=== PATIENT | male | born 1960 | race African-American/Black ===

== ENCOUNTER 2020-09-20 15:24 | Inpatient (IN) ==
[2020-09-20] MEDS ORDERED: SODIUM CHLORIDE 0.9% 1,000 ML IV STA (16:06)
[2020-09-20] MEDS ORDERED: VANCOMYCIN INJ 1,000 MG in SODIUM CHLORIDE 0.9% 250 ML IV STA ×2 (16:06→16:11)
[2020-09-20] MEDS ORDERED: DIPH/TET/ACEL PERT BOOSTER VACCINE 0.5 ML VIAL IM ONE (16:06)
[2020-09-20] MEDS ORDERED: PIPERACILLIN/TAZOBACTAM 3,375 MG in SODIUM CHLORIDE 0.9% 100 ML IV STA (16:08)
[2020-09-20 16:29] LABS: Basophils # 0.1 10*3/uL (0.0-0.2); Basophils % 0.3 % (0.0-0.8); Eosinophils # 0.1 10*3/uL (0.0-0.87); Eosinophils % 0.3 % (0.00-10.9); Hematocrit 36.7 VOL% (42.0-52.0); Hemoglobin 11.5 GM/DL (14.0-18.0); Immature Granulocytes % 0.9 %; Immature Granulocytes Absolute 0.14 #; Lymphocytes # 1.8 10*3/uL (1.4-4.0); Mean Corpuscular HGB Conc 31.3 GM/DL (32-36); Mean Corpuscular Volume 80.8 FL (87-102); Mean Platelet Volume 9.6 FL (9.6-12.0); Monocytes % 8.1 % (1.7-12.7); Neutrophils % 78.4 % (38.7-73.9); Platelet Count 479 T/CUMM (130-400); Red Blood Count 4.54 MC/CUMM (3.8-5.5); Red Cell Distribution Width 14.2 % (9.3-17.3)
[2020-09-20 16:40] LABS: Calcium 9.1 MG/DL (8.5-10.1); Osmolality,Calculated 259.7 MOS/KG (273-304); Potassium 4.3 MMOL/L (3.5-5.1)
[2020-09-20] MEDS ORDERED: propofoL 200 MG/20 ML VIAL IV ONE (16:54)
[2020-09-20] MEDS ORDERED: LIDOCAINE 2% 5 ML VIAL ONE (16:54)
[2020-09-20] MEDS ORDERED: ONDANSETRON 4 MG/2 ML VIAL IV STA (16:55)
[2020-09-20] MEDS ORDERED: HYDROmorphone 2 MG/1 ML VIAL IV STA (16:55)
[2020-09-20] MEDS ORDERED: GLUCAGON 1 MG VIAL IM PRN (16:57)
[2020-09-20] MEDS ORDERED: ONDANSETRON 4 MG/2 ML VIAL IV PRN ×2 (16:57→18:22)
[2020-09-20] MEDS ORDERED: DEXTROSE 50% 25 GM/50 ML VIAL IV PRN (16:57)
[2020-09-20] MEDS ORDERED: fentaNYL 100 MCG/2 ML VIAL ONE (17:12)
[2020-09-20] MEDS ORDERED: PHENYLEPHRINE 1 MG/10 ML SYRINGE IV ONE (17:34)
[2020-09-20] MEDS ORDERED: DEXAMETHASONE 4 MG/1 ML VIAL ONE (18:11)
[2020-09-20] MEDS ORDERED: ONDANSETRON 4 MG/2 ML VIAL ONE (18:11)
[2020-09-20] MEDS ORDERED: SEVOFLURANE 1 UNIT/15 MINUTE INH ONE (18:11)
[2020-09-20] MEDS ORDERED: HYDROmorphone 2 MG/1 ML VIAL IV PRN (18:22)
[2020-09-20] MEDS ORDERED: INFLUENZA VIRUS VACCINE 0.5 ML SYRINGE IM ONE (20:09)
[2020-09-20] MEDS: SODIUM CHLORIDE 0.9% 1,000 ML IV SCH (20:35)
[2020-09-20] MEDS: PIPERACILLIN/TAZOBACTAM 3,375 MG in SODIUM CHLORIDE 0.9% 100 ML IV SCH (21:22)
[2020-09-21] MEDS: MORPHINE 4 MG/1 ML VIAL IV PRN ×3 (03:25→13:06)
[2020-09-21] MEDS: PIPERACILLIN/TAZOBACTAM 3,375 MG in SODIUM CHLORIDE 0.9% 100 ML IV SCH ×3 (03:38→19:12)
[2020-09-21 04:49] LABS: Basophils % 0.1 % (0.0-0.8); Hematocrit 29.2 VOL% (42.0-52.0); Immature Granulocytes % 0.5 %; Immature Granulocytes Absolute 0.04 #; Lymphocytes # 0.9 10*3/uL (1.4-4.0); Lymphocytes % 11.9 % (21.2-54.2); Mean Corpuscular HGB Conc 32.2 GM/DL (32-36); Mean Corpuscular Volume 79.3 FL (87-102); Mean Platelet Volume 9.8 FL (9.6-12.0); Monocytes % 5.1 % (1.7-12.7); Neutrophils % 82.4 % (38.7-73.9); Red Blood Count 3.68 MC/CUMM (3.8-5.5); Red Cell Distribution Width 13.9 % (9.3-17.3)
[2020-09-21 05:02] LABS: Calcium 8.3 MG/DL (8.5-10.1); Osmolality,Calculated 261.8 MOS/KG (273-304); Potassium 4.3 MMOL/L (3.5-5.1); Risk Ratio 2.4; Thyroid Stimulating Hormone 0.939 uIU/ml (0.358-3.74); VLDL CHOLESTEROL 10.6 MG/DL
[2020-09-21 05:06] LABS: Hemoglobin 9.4 GM/DL (14.0-18.0); Platelet Count 370 T/CUMM (130-400); White Blood Count 7.5 T/CUMM (4-12)
[2020-09-21] MEDS: VANCOMYCIN INJ 1,000 MG in SODIUM CHLORIDE 0.9% 250 ML IV SCH ×2 (08:10→20:55)
[2020-09-21] MEDS ORDERED: DEXTROSE 50% 25 GM/50 ML VIAL IV PRN ×2 (11:10→11:11)
[2020-09-21] MEDS ORDERED: GLUCAGON 1 MG VIAL IM PRN ×2 (11:10→11:11)
[2020-09-21] MEDS ORDERED: CLINDAMYCIN INJ 900 MG in PREMIX 1 EACH IV ONE (11:35)
[2020-09-21] MEDS: INSULIN LISPRO 100 UNIT/ML SUBCUT SCH ×3 (15:52→21:37)
[2020-09-21] MEDS: SODIUM CHLORIDE 0.9% 1,000 ML IV SCH (21:02)
[2020-09-22] MEDS: PIPERACILLIN/TAZOBACTAM 3,375 MG in SODIUM CHLORIDE 0.9% 100 ML IV SCH ×3 (02:05→17:47)
[2020-09-22] MEDS: SODIUM CHLORIDE 0.9% 1,000 ML IV SCH ×2 (02:05→15:46)
[2020-09-22 03:48] LABS: Basophils % 0.3 % (0.0-0.8); Eosinophils # 0.1 10*3/uL (0.0-0.87); Eosinophils % 1.1 % (0.00-10.9); Hematocrit 27.3 VOL% (42.0-52.0); Hemoglobin 8.8 GM/DL (14.0-18.0); Immature Granulocytes % 0.6 %; Immature Granulocytes Absolute 0.04 #; Lymphocytes # 1.6 10*3/uL (1.4-4.0); Lymphocytes % 24.2 % (21.2-54.2); Mean Corpuscular HGB Conc 32.2 GM/DL (32-36); Mean Corpuscular Volume 80.1 FL (87-102); Mean Platelet Volume 9.1 FL (9.6-12.0); Neutrophils % 66.8 % (38.7-73.9); Platelet Count 338 T/CUMM (130-400); Red Blood Count 3.41 MC/CUMM (3.8-5.5); Red Cell Distribution Width 14.2 % (9.3-17.3); White Blood Count 6.4 T/CUMM (4-12)
[2020-09-22 04:12] LABS: Atypical Lymphocytes Few; Eosinophils 2 % (0-10); Hypochromasia 1+; Lymphocytes 18 % (20-55); Microcytosis Slight; Segmented Neutrophils 75 % (50-85); Total Cells Counted 100
[2020-09-22 04:13] LABS: Target Cells Slight
[2020-09-22 04:35] LABS: Calcium 7.9 MG/DL (8.5-10.1); Osmolality,Calculated 266.2 MOS/KG (273-304); Potassium 3.7 MMOL/L (3.5-5.1)
[2020-09-22] MEDS ORDERED: LIDOCAINE 2% 5 ML VIAL ONE (06:47)
[2020-09-22] MEDS ORDERED: propofoL 200 MG/20 ML VIAL IV ONE (06:47)
[2020-09-22] MEDS ORDERED: SEVOFLURANE 1 UNIT/15 MINUTE INH ONE ×8 (06:47→09:33)
[2020-09-22] MEDS ORDERED: MIDAZOLAM 2 MG/2 ML VIAL ONE (06:47)
[2020-09-22] MEDS ORDERED: fentaNYL 100 MCG/2 ML VIAL ONE ×3 (06:47→08:39)
[2020-09-22] MEDS ORDERED: PHENYLEPHRINE 1 MG/10 ML SYRINGE IV ONE (07:27)
[2020-09-22] MEDS ORDERED: ONDANSETRON 4 MG/2 ML VIAL ONE (07:28)
[2020-09-22] MEDS ORDERED: PHENYLEPHRINE 10 MG/1 ML VIAL IV ONE (07:54)
[2020-09-22] MEDS ORDERED: SODIUM CHLORIDE 0.9% 0 ML IV ONE (07:55)
[2020-09-22] MEDS ORDERED: SODIUM CHLORIDE 0.9% 250 ML IV ONE (07:55)
[2020-09-22] MEDS: INSULIN LISPRO 100 UNIT/ML SUBCUT SCH ×4 (09:00→21:16)
[2020-09-22] MEDS: HYDROmorphone 2 MG/1 ML VIAL IV PRN ×4 (09:36→10:00)
[2020-09-22] MEDS ORDERED: HYDROmorphone 2 MG/1 ML VIAL ONE (09:37)
[2020-09-22] MEDS: VANCOMYCIN INJ 1,000 MG in SODIUM CHLORIDE 0.9% 250 ML IV SCH ×2 (10:38→22:17)
[2020-09-22] MEDS: MORPHINE 4 MG/1 ML VIAL IV PRN ×2 (14:40→20:02)
[2020-09-23] MEDS: PIPERACILLIN/TAZOBACTAM 3,375 MG in SODIUM CHLORIDE 0.9% 100 ML IV SCH (05:04)
[2020-09-23 06:27] LABS: Calcium 7.6 MG/DL (8.5-10.1); Osmolality,Calculated 265.2 MOS/KG (273-304); Potassium 3.7 MMOL/L (3.5-5.1)
[2020-09-23 06:33] LABS: Basophils % 0.4 % (0.0-0.8); Eosinophils # 0.1 10*3/uL (0.0-0.87); Eosinophils % 1.4 % (0.00-10.9); Immature Granulocytes % 0.8 %; Immature Granulocytes Absolute 0.06 #; Lymphocytes # 1.3 10*3/uL (1.4-4.0); Lymphocytes % 16.3 % (21.2-54.2); Mean Corpuscular HGB Conc 32.5 GM/DL (32-36); Mean Corpuscular Volume 79.1 FL (87-102); Mean Platelet Volume 9.5 FL (9.6-12.0); Monocytes % 11.3 % (1.7-12.7); Neutrophils % 69.8 % (38.7-73.9); Platelet Count 340 T/CUMM (130-400); Red Cell Distribution Width 14.3 % (9.3-17.3); White Blood Count 7.7 T/CUMM (4-12)
[2020-09-23 06:38] LABS: Hematocrit 23.1 VOL% (42.0-52.0); Hemoglobin 7.5 GM/DL (14.0-18.0); Red Blood Count 2.92 MC/CUMM (3.8-5.5)
[2020-09-23 06:40] LABS: Hypochromasia 1+; Microcytosis Slight
[2020-09-23 06:41] LABS: Platelet Estimate Normal; Target Cells Slight
[2020-09-23] MEDS: INSULIN LISPRO 100 UNIT/ML SUBCUT SCH ×4 (07:47→20:51)
[2020-09-23] MEDS: VANCOMYCIN INJ 1,000 MG in SODIUM CHLORIDE 0.9% 250 ML IV SCH (09:39)
[2020-09-23] MEDS ORDERED: TUBERCULIN SKIN TEST 0.1 ML SYRINGE INTRADERM ONE (12:19)
[2020-09-23] MEDS: cefTRIAXone 1,000 MG in SYRINGE 1 EACH IV SCH (13:13)
[2020-09-23] MEDS: MORPHINE 4 MG/1 ML VIAL IV PRN (17:07)
[2020-09-24 04:35] LABS: Basophils % 0.3 % (0.0-0.8); Eosinophils # 0.1 10*3/uL (0.0-0.87); Eosinophils % 1.6 % (0.00-10.9); Hematocrit 21.5 VOL% (42.0-52.0); Immature Granulocytes % 0.6 %; Immature Granulocytes Absolute 0.04 #; Lymphocytes # 1.5 10*3/uL (1.4-4.0); Mean Corpuscular HGB Conc 32.6 GM/DL (32-36); Mean Corpuscular Volume 79.3 FL (87-102); Mean Platelet Volume 9.2 FL (9.6-12.0); Monocytes % 12.1 % (1.7-12.7); Neutrophils % 62.4 % (38.7-73.9); Platelet Count 292 T/CUMM (130-400); Red Blood Count 2.71 MC/CUMM (3.8-5.5); Red Cell Distribution Width 14.2 % (9.3-17.3); White Blood Count 6.3 T/CUMM (4-12)
[2020-09-24 04:56] LABS: Calcium 7.6 MG/DL (8.5-10.1); Osmolality,Calculated 266.1 MOS/KG (273-304); Potassium 3.5 MMOL/L (3.5-5.1)
[2020-09-24 04:57] LABS: Eosinophils 1 % (0-10); Hypochromasia 2+; Lymphocytes 22 % (20-55); Microcytosis 1+; Ovalocytes Slight; Platelet Estimate Adequate; Segmented Neutrophils 64 % (50-85); Total Cells Counted 100
[2020-09-24] MEDS: INSULIN LISPRO 100 UNIT/ML SUBCUT SCH ×4 (07:37→21:30)
[2020-09-24] MEDS ORDERED: SODIUM CHLORIDE 0.9% 1,000 ML IV PRN (07:40)
[2020-09-24] MEDS: MORPHINE 4 MG/1 ML VIAL IV PRN (11:32)
[2020-09-24] MEDS: cefTRIAXone 1,000 MG in SYRINGE 1 EACH IV SCH (11:35)
[2020-09-24 11:57] LABS: Basophils % 0.5 % (0.0-0.8); Eosinophils # 0.1 10*3/uL (0.0-0.87); Eosinophils % 1.6 % (0.00-10.9); Hematocrit 22.9 VOL% (42.0-52.0); Hemoglobin 7.2 GM/DL (14.0-18.0); Immature Granulocytes % 0.8 %; Immature Granulocytes Absolute 0.06 #; Lymphocytes # 1.4 10*3/uL (1.4-4.0); Lymphocytes % 17.9 % (21.2-54.2); Mean Corpuscular HGB Conc 31.4 GM/DL (32-36); Mean Corpuscular Volume 80.4 FL (87-102); Monocytes % 12.3 % (1.7-12.7); Neutrophils % 66.9 % (38.7-73.9); Platelet Count 303 T/CUMM (130-400); Red Blood Count 2.85 MC/CUMM (3.8-5.5); Red Cell Distribution Width 14.3 % (9.3-17.3); White Blood Count 7.7 T/CUMM (4-12)
[2020-09-24 12:24] LABS: Ferritin 217.5 ng/ml (26-388)
[2020-09-24 12:25] LABS: Atypical Lymphocytes Few; Lymphocytes 23 % (20-55); Reactive Lymphocytes Slight; Total Cells Counted 100
[2020-09-24 12:27] LABS: Target Cells Few
[2020-09-24 12:28] LABS: Ovalocytes Slight; Platelet Estimate Normal; Polychromasia Slight
[2020-09-24 12:29] LABS: Segmented Neutrophils 70 % (50-85)
[2020-09-24] MEDS ORDERED: HYDROmorphone 2 MG/1 ML VIAL IV PRN (12:38)
[2020-09-24 13:26] LABS: Sedimentation Rate-Westergren 126 MM/HR (0-20)
[2020-09-24 13:57] LABS: Folate 5.9 NG/ML (5.38-24.0); Vitamin B12 182 PG/ML (211-911)
[2020-09-24] MEDS: HYDROmorphone 2 MG/1 ML VIAL IV PRN (14:21)
[2020-09-24 23:47] LABS: Hematocrit 27.7 VOL% (42.0-52.0); Hemoglobin 8.9 GM/DL (14.0-18.0)
[2020-09-25 07:16] LABS: Calcium 7.9 MG/DL (8.5-10.1); Osmolality,Calculated 258.7 MOS/KG (273-304); Potassium 3.9 MMOL/L (3.5-5.1)
[2020-09-25 07:38] LABS: Basophils % 0.5 % (0.0-0.8); Eosinophils # 0.1 10*3/uL (0.0-0.87); Eosinophils % 1.6 % (0.00-10.9); Hematocrit 28.9 VOL% (42.0-52.0); Hemoglobin 9.2 GM/DL (14.0-18.0); Immature Granulocytes % 0.8 %; Immature Granulocytes Absolute 0.06 #; Lymphocytes # 1.5 10*3/uL (1.4-4.0); Lymphocytes % 19.7 % (21.2-54.2); Mean Corpuscular HGB Conc 31.8 GM/DL (32-36); Mean Corpuscular Volume 80.3 FL (87-102); Mean Platelet Volume 9.4 FL (9.6-12.0); Monocytes % 10.6 % (1.7-12.7); Neutrophils % 66.8 % (38.7-73.9); Platelet Count 323 T/CUMM (130-400); Red Cell Distribution Width 14.3 % (9.3-17.3); White Blood Count 7.7 T/CUMM (4-12)
[2020-09-25] MEDS: INSULIN LISPRO 100 UNIT/ML SUBCUT SCH ×4 (07:57→21:20)
[2020-09-25 08:06] LABS: Eosinophils 1 % (0-10); Hypochromasia 1+; Lymphocytes 20 % (20-55); Microcytosis 1+; Platelet Estimate Adequate; Segmented Neutrophils 68 % (50-85); Total Cells Counted 100
[2020-09-25] MEDS: cefTRIAXone 1,000 MG in SYRINGE 1 EACH IV SCH (10:43)
[2020-09-25] MEDS: HYDROmorphone 2 MG/1 ML VIAL IV PRN (19:19)
[2020-09-26 04:21] LABS: Basophils % 0.4 % (0.0-0.8); Eosinophils # 0.2 10*3/uL (0.0-0.87); Eosinophils % 2.1 % (0.00-10.9); Hematocrit 26.9 VOL% (42.0-52.0); Hemoglobin 8.7 GM/DL (14.0-18.0); Immature Granulocytes % 0.6 %; Immature Granulocytes Absolute 0.04 #; Lymphocytes # 1.4 10*3/uL (1.4-4.0); Lymphocytes % 20.5 % (21.2-54.2); Mean Corpuscular HGB Conc 32.3 GM/DL (32-36); Mean Corpuscular Volume 80.5 FL (87-102); Mean Platelet Volume 9.2 FL (9.6-12.0); Monocytes % 9.2 % (1.7-12.7); Neutrophils % 67.2 % (38.7-73.9); Platelet Count 329 T/CUMM (130-400); Red Blood Count 3.34 MC/CUMM (3.8-5.5); Red Cell Distribution Width 14.5 % (9.3-17.3)
[2020-09-26 04:30] LABS: Calcium 7.6 MG/DL (8.5-10.1); Osmolality,Calculated 263.4 MOS/KG (273-304); Potassium 3.5 MMOL/L (3.5-5.1)
[2020-09-26 05:06] LABS: Atypical Lymphocytes Few; Eosinophils 3 % (0-10); Hypochromasia 1+; Lymphocytes 23 % (20-55); Segmented Neutrophils 68 % (50-85); Total Cells Counted 100
[2020-09-26 05:07] LABS: Microcytosis 1+
[2020-09-26] MEDS: INSULIN LISPRO 100 UNIT/ML SUBCUT SCH ×4 (08:30→20:41)
[2020-09-26] MEDS: HYDROmorphone 2 MG/1 ML VIAL IV PRN ×2 (10:12→16:21)
[2020-09-26] MEDS: cefTRIAXone 1,000 MG in SYRINGE 1 EACH IV SCH (12:54)
[2020-09-26 13:01] LABS: Hb A 93.5 % (95.8-98.0); Hb A2 6.5 % (2.0-3.3); Hb F 0 % (0.0-0.9)
[2020-09-27 06:16] LABS: Basophils % 0.6 % (0.0-0.8); Eosinophils # 0.1 10*3/uL (0.0-0.87); Eosinophils % 2.5 % (0.00-10.9); Hematocrit 25.4 VOL% (42.0-52.0); Hemoglobin 8.5 GM/DL (14.0-18.0); Immature Granulocytes % 0.6 %; Immature Granulocytes Absolute 0.03 #; Lymphocytes # 1.2 10*3/uL (1.4-4.0); Lymphocytes % 24.4 % (21.2-54.2); Mean Corpuscular HGB Conc 33.5 GM/DL (32-36); Mean Corpuscular Volume 79.1 FL (87-102); Monocytes % 10.9 % (1.7-12.7); Platelet Count 313 T/CUMM (130-400); Red Blood Count 3.21 MC/CUMM (3.8-5.5); Red Cell Distribution Width 14.5 % (9.3-17.3); White Blood Count 4.9 T/CUMM (4-12)
[2020-09-27 06:33] LABS: Calcium 7.9 MG/DL (8.5-10.1); Osmolality,Calculated 263.4 MOS/KG (273-304); Potassium 3.7 MMOL/L (3.5-5.1)
[2020-09-27 06:50] LABS: Eosinophils 2 % (0-10); Hypochromasia 1+; Lymphocytes 14 % (20-55); Platelet Estimate Normal; Polychromasia Slight; Segmented Neutrophils 74 % (50-85); Total Cells Counted 100
[2020-09-27] MEDS: HYDROmorphone 2 MG/1 ML VIAL IV PRN ×2 (09:39→15:02)
[2020-09-27] MEDS: INSULIN LISPRO 100 UNIT/ML SUBCUT SCH ×4 (10:15→20:22)
[2020-09-27] MEDS ORDERED: POLYETHYLENE GLYCOL POWDER 17 GM PACK PO SCH (11:30)
[2020-09-27] MEDS: cefTRIAXone 1,000 MG in SYRINGE 1 EACH IV SCH (12:06)
[2020-09-27] MEDS: DOCUSATE SODIUM 100 MG CAPSULE PO SCH ×2 (12:07→20:22)
[2020-09-27] MEDS: CYANOCOBALAMIN 500 MCG TABLET PO SCH (12:07)
[2020-09-27] MEDS: FOLIC ACID 1 MG TABLET PO SCH (20:21)
[2020-09-27] MEDS: POLYETHYLENE GLYCOL POWDER 17 GM PACK PO SCH (20:22)
[2020-09-28 05:56] LABS: Basophils % 0.6 % (0.0-0.8); Eosinophils # 0.1 10*3/uL (0.0-0.87); Eosinophils % 2.4 % (0.00-10.9); Hematocrit 26.9 VOL% (42.0-52.0); Hemoglobin 8.5 GM/DL (14.0-18.0); Immature Granulocytes % 0.8 %; Immature Granulocytes Absolute 0.04 #; Lymphocytes # 1.3 10*3/uL (1.4-4.0); Lymphocytes % 25.6 % (21.2-54.2); Mean Corpuscular HGB Conc 31.6 GM/DL (32-36); Mean Corpuscular Volume 80.8 FL (87-102); Monocytes % 12.3 % (1.7-12.7); Neutrophils % 58.3 % (38.7-73.9); Platelet Count 334 T/CUMM (130-400); Red Blood Count 3.33 MC/CUMM (3.8-5.5); Red Cell Distribution Width 14.6 % (9.3-17.3)
[2020-09-28 06:36] LABS: Calcium 8.4 MG/DL (8.5-10.1); Osmolality,Calculated 261.4 MOS/KG (273-304); Potassium 3.7 MMOL/L (3.5-5.1)
[2020-09-28] MEDS: INSULIN LISPRO 100 UNIT/ML SUBCUT SCH ×4 (08:23→21:50)
[2020-09-28] MEDS: LINACLOTIDE 145 MCG CAPSULE PO SCH (08:37)
[2020-09-28] MEDS: DOCUSATE SODIUM 100 MG CAPSULE PO SCH ×2 (08:37→21:43)
[2020-09-28] MEDS: FERROUS SULFATE 325 MG TABLET PO SCH (08:38)
[2020-09-28] MEDS: POLYETHYLENE GLYCOL POWDER 17 GM PACK PO SCH ×2 (08:41→21:43)
[2020-09-28] MEDS: CYANOCOBALAMIN 500 MCG TABLET PO SCH (08:43)
[2020-09-28 09:24] LABS: Hypochromasia 1+; Platelet Estimate Normal
[2020-09-28] MEDS: cefTRIAXone 1,000 MG in SYRINGE 1 EACH IV SCH (12:14)
[2020-09-28] MEDS: FOLIC ACID 1 MG TABLET PO SCH (21:46)
[2020-09-29 06:02] LABS: Hemoglobin A1 (Alkaline) 93.5 % (96.5-98.5); Hemoglobin A2 (Alkaline) 6.5 % (1.5-3.5)
[2020-09-29] MEDS: INSULIN LISPRO 100 UNIT/ML SUBCUT SCH ×2 (07:54→11:35)
[2020-09-29] MEDS: CYANOCOBALAMIN 500 MCG TABLET PO SCH (08:21)
[2020-09-29] MEDS: LINACLOTIDE 145 MCG CAPSULE PO SCH (08:21)
[2020-09-29] MEDS: DOCUSATE SODIUM 100 MG CAPSULE PO SCH (08:21)
[2020-09-29] MEDS: POLYETHYLENE GLYCOL POWDER 17 GM PACK PO SCH (08:21)
[2020-09-29] MEDS: FERROUS SULFATE 325 MG TABLET PO SCH (08:21)
[2020-09-29] MEDS: cefTRIAXone 1,000 MG in SYRINGE 1 EACH IV SCH (10:51)
[2020-09-29 11:53] VITALS: BP 118/63
== END 2020-09-29 13:43 | DRG 305 ==
LOC: N.ED 15:24 → SUATTDRO 16:57 → N.EDINP 16:57 → N.3E 17:12
PROVIDERS: ADMIT Hospitalist; ATTEND Hospitalist